=== PATIENT | female | born 2000 | race Caucasian/White ===

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

== ENCOUNTER 2021-08-07 11:40 | Emergency (ER) | payer MEDICAID ==
[~2021-08-07] VITALS: Ht 152.4 cm; Wt 56.2 kg
[2021-08-07 11:40] VITALS: BP_SYST 112
[~2021-08-07 11:40] MED LIST: DIPH25CA83 PO; PRED20TA PO
[2021-08-07] MEDS ORDERED: DEXAMETHASONE SOD PHOSPHATE 10 MG/ML VIAL PO ONE (12:45)
[2021-08-07 14:00] VITALS: BP_SYST 112
== END 2021-08-07 14:00 | disposition home or self-care (01) ==
LOC: SED 11:40
DX: J02.9 Acute pharyngitis, unspecified (principal); H92.02 Otalgia, left ear; Z79.899 Other long term (current) drug therapy
CPT/HCPCS: 86403; 87081; 99283; J1100; 36415